=== PATIENT | female | born 1990 | race African-American/Black ===

== ENCOUNTER 2019-03-26 19:38 | Emergency (ER) | payer OTHER, MEDICAID ==
[~2019-03-26] VITALS: Ht 160 cm; Wt 57.2 kg
[2019-03-26 19:43] VITALS: Ht 160 cm; Wt 57.2 kg
[2019-03-26 20:15] LABS: RED CELL DISTRIBUTION WIDTH 14.3 % (11.5-14.5)
[2019-03-26 20:17] LABS: PLATELET COUNT 288 x10^3mcL (130-400)
[2019-03-26 23:16] VITALS: BP 116/73
== END 2019-03-26 23:16 | disposition home or self-care (01) ==
LOC: ED 19:38
PROVIDERS: Emergency Medicine
DX: O20.0 Threatened abortion (principal)
CPT/HCPCS: 36415; J1460

== ENCOUNTER 2019-04-27 11:59 | Emergency (ER) | payer OTHER, MEDICAID ==
[~2019-04-27] VITALS: Ht 160 cm; Wt 57.6 kg
[2019-04-27 12:24] VITALS: Ht 160 cm; Wt 57.6 kg
[2019-04-27 18:02] VITALS: BP 132/67
== END 2019-04-27 18:02 | disposition home or self-care (01) ==
LOC: ED 11:59
DX: O21.8 Other vomiting complicating pregnancy (principal); R10.13 Epigastric pain; Z3A.11 11 weeks gestation of pregnancy
CPT/HCPCS: J8597